=== PATIENT | female | born 1950 | race Caucasian/White ===

== ENCOUNTER 2019-07-31 03:35 | Emergency (ER) | payer MEDICARE ==
--- NOTE | 2019-07-31 03:43 | ED Physician Documentation ---
History of Present Illness - Stated complaint Stated Complaint: CP - History obtained from History obtained from: Patient (The patient is a 69-year-old female who presents to the emergency department with a chief complaint of chest pain that radiates to the back associated with nausea. She tried taking some antacids prior to arrival, However she continues to have chest pain.She denies any history of coronary artery disease or pulmonary embolism or DVT. She reports she is never had a previous stress test she does take mesalamine for inflammatory bowel disease.She denies tobacco alcohol or drug use. takes CBD. reports he typical heart rate has always been in the 50s.) Review of Systems Constitutional: reports: Reviewed and negative Eyes: reports: Reviewed and negative Ears: reports: Reviewed and negative Nose: reports: Reviewed and negative Throat: reports: Reviewed and negative Cardiac: reports: Chest pain / pressure Respiratory: reports: Reviewed and negative GI: reports: Nausea : reports: Reviewed and negative Skin: reports: Reviewed and negative Musculoskeletal: reports: Reviewed and negative Neurologic: reports: Reviewed and negative Psychiatric: reports: Reviewed and negative Endocrine: reports: Reviewed and negative Immunocompromised: reports: Reviewed and negative PD PAST MEDICAL HISTORY - Past Medical History Cardiovascular: None Respiratory: None Endocrine/Autoimmune: None GI: Crohn's disease LONE LEAD LINEMAN: None : None HEENT: Glaucoma Psych: Depression Musculoskeletal: Osteoarthritis Derm: None - Past Surgical History Past Surgical History: Yes General: Appendectomy Ortho: Spine surgery /LONE LEAD LINEMAN: Hysterectomy HEENT: Tonsil/Adenoidectomy - Present Medications Home Medications: Ambulatory Orders Medication Instructions Recorded Confirmed Hydrocodone/Acetaminophen 1 tab PO Q6HR PRN 02/10/14 07/31/19 [Hydrocodon-Acetaminophen 5-325] Mesalamine [Pentasa] 500 mg PO TID 02/10/14 07/31/19 Naproxen [Naprosyn] 2 tab PO BID 02/10/14 07/31/19 diazePAM [Valium] 5 mg PO TID PRN #15 tablet 02/10/14 07/31/19 Meclizine [Antivert] 25 mg PO Q6H PRN #20 tablet 02/11/14 07/31/19 Estradiol/Levonorgestrel [Climara 0.0025 mg TOP 5XD 01/24/15 07/31/19 Pro Patch] Gabapentin 300 mg PO BID 04/18/18 07/31/19 Cyanocobalamin [Vitamin B-12] 1.5 ml IM 07/31/19 Famotidine [Pepcid] 20 mg PO DAILY 07/31/19 07/31/19 - Allergies Allergies/Adverse Reactions: Allergies Allergy/AdvReac Type Severity Reaction Status Date / Time adhesive tape Allergy Rash Verified 07/31/19 03:45 oxycodone HCl * AdvReac Intermediate Hallucinati Verified 07/31/19 03:45 [From OxyContin] ons - Social History Does the pt smoke?: No Smoking Status: Never smoker Does the pt drink ETOH?: No Does the pt have substance abuse?: No - Immunizations Immunizations are current?: Yes - POLST Patient has POLST: No PD ED PE NORMAL - Vitals Vital signs reviewed: Yes - General General: Alert and oriented X 3, No acute distress, Well developed/nourished - HEENT HEENT: Atraumatic, PERRL, EOMI, Ears normal, Moist mucous membranes, Pharynx benign, Dentition benign - Neck Neck: Supple, no meningeal sign, No adenopathy, No JVD, No bruit - Cardiac Cardiac: RRR, No murmur, Strong equal pulses - Respiratory Respiratory: No respiratory distress, Clear bilaterally - Abdomen Abdomen: Normal bowel sounds, Soft, Non tender, Non distended, No organomegaly - Back Back: No CVA TTP, No spinal TTP - Derm Derm: Normal color, Warm and dry, No rash - Extremities Extremities: No deformity, No tenderness to palpate, Normal ROM s pain, No edema, No calf tenderness / cord - Neuro Neuro: Alert and oriented X 3, choir singer 2-12 intact, No motor deficit, No sensory deficit, Normal speech - Psych Psych: Normal mood, Normal affect Results - Vitals Vitals: Vital Signs - 24 hr 07/31/19 07/31/19 07/31/19 03:40 03:43 04:08 Temperature 36.5 C Heart Rate 53 L 56 L Respiratory 16 16 Rate Blood Pressure 190/73 H 166/69 H Blood Pressure 190/73 H [Left] Blood Pressure 166/77 H [Right] O2 Saturation 100 97 07/31/19 07/31/19 07/31/19 04:32 04:59 05:13 Temperature Heart Rate 46 L 47 L 59 L Respiratory 16 12 12 Rate Blood Pressure 168/69 H 154/59 H 161/68 H Blood Pressure [Left] Blood Pressure [Right] O2 Saturation 98 98 98 07/31/19 07/31/19 05:16 06:01 Temperature 36.6 C Heart Rate 55 L 48 L Respiratory 12 13 Rate Blood Pressure 133/67 H 137/68 H Blood Pressure [Left] Blood Pressure [Right] O2 Saturation 95 97 Oxygen O2 Source Room air - EKG (time done) 03:39 Rate: Other (no stemi) 05:32 Rate: Other (no stemi sinus bradycardia) - Labs Labs: Laboratory Tests 07/31/19 07/31/19 07/31/19 04:15 04:15 04:15 WBC 7.0 RBC 4.25 Hgb 13.2 Hct 39.6 MCV 93.2 MCH 31.1 H MCHC 33.3 RDW 11.8 L Plt Count 258 MPV 9.3 Neut # (Auto) 3.8 Lymph # (Auto) 2.3 Wharton # (Auto) 0.7 Eos # (Auto) 0.1 Baso # (Auto) 0.0 Absolute Nucleated RBC 0.00 Nucleated RBC % 0.0 PT 11.9 INR 1.0 APTT 31.8 Sodium 141 Potassium 3.9 Chloride 103 Carbon Dioxide 28 Anion Gap 10.0 BUN 22 H Creatinine 0.8 Estimated GFR (MDRD) 72 L Glucose 87 Calcium 9.8 Total Bilirubin 0.7 AST 20 ALT 18 Alkaline Phosphatase 58 Total Creatine Kinase 86 Troponin I High Sens B-Natriuretic Peptide Total Protein 6.7 Albumin 4.2 Globulin 2.5 Albumin/Globulin Ratio 1.7 Lipase 40 Urine Color Urine Clarity Urine pH Ur Specific Norris Urine Protein Urine Glucose (UA) Urine Ketones Urine Occult Blood Urine Nitrite Urine Bilirubin Urine Urobilinogen Ur Leukocyte Esterase Ur Microscopic Review Urine Culture Comments 07/31/19 07/31/19 07/31/19 04:15 04:15 04:25 WBC RBC Hgb Hct MCV MCH MCHC RDW Plt Count MPV Neut # (Auto) Lymph # (Auto) Wharton # (Auto) Eos # (Auto) Baso # (Auto) Absolute Nucleated RBC Nucleated RBC % PT INR APTT Sodium Potassium Chloride Carbon Dioxide Anion Gap BUN Creatinine Estimated GFR (MDRD) Glucose Calcium Total Bilirubin AST ALT Alkaline Phosphatase Total Creatine Kinase Troponin I High Sens 2.4 B-Natriuretic Peptide 54 Total Protein Albumin Globulin Albumin/Globulin Ratio Lipase Urine Color YELLOW Urine Clarity CLEAR Urine pH 7.0 Ur Specific Norris 1.015 Urine Protein NEGATIVE Urine Glucose (UA) NEGATIVE Urine Ketones NEGATIVE Urine Occult Blood NEGATIVE Urine Nitrite NEGATIVE Urine Bilirubin NEGATIVE Urine Urobilinogen 0.2 (NORMAL) Ur Leukocyte Esterase NEGATIVE Ur Microscopic Review NOT INDICATED Urine Culture Comments NOT INDICATED 07/31/19 05:52 WBC RBC Hgb Hct MCV MCH MCHC RDW Plt Count MPV Neut # (Auto) Lymph # (Auto) Wharton # (Auto) Eos # (Auto) Baso # (Auto) Absolute Nucleated RBC Nucleated RBC % PT INR APTT Sodium Potassium Chloride Carbon Dioxide Anion Gap BUN Creatinine Estimated GFR (MDRD) Glucose Calcium Total Bilirubin AST ALT Alkaline Phosphatase Total Creatine Kinase Troponin I High Sens < 2.3 L B-Natriuretic Peptide Total Protein Albumin Globulin Albumin/Globulin Ratio Lipase Urine Color Urine Clarity Urine pH Ur Specific Norris Urine Protein Urine Glucose (UA) Urine Ketones Urine Occult Blood Urine Nitrite Urine Bilirubin Urine Urobilinogen Ur Leukocyte Esterase Ur Microscopic Review Urine Culture Comments PD MEDICAL DECISION MAKING - ED course Complexity details: reviewed old records, reviewed results, re-evaluated patient (06:24 I had a lengthy discussion with this patient her heart score is 4. I did offer admission however we do not have the capability of doing a stress test today I did offer to transfer this patient to a higher level of care for a stress test however the patient would like to be discharged home she does have medical decision-making capability and capacity accepts all rest and include sudden . And/or disability. That being said her EKG x2 shows no STEMI does show sinus bradycardia no evidence of advanced heart block, troponins negative x2- chest x-ray and a negative CTA of the chest that shows no signs of pulmonary embolism or aneurysm or dissection. That being said a student still do not have an answer for the cause of her discomfort I would like her to have close follow-up with her primary care provider did provide her the name and phone number of a tax compliance representative to follow-up with as well.), considered differential (ACS, PE, DISSECTION, COSTOCHONDRITIS, PANCREATITIS, CHOLECYSTITIS, CHOLELITHIASIS, GERD, PEPTIC ULCER DISEASE, PTHX, TAMPONADE, ESOPOHAGEAL RUPTURE. ) Departure - Departure Disposition: 01 Home, Self Care Clinical Impression: Bradycardia Chest pain Qualifiers: Chest pain type: unspecified Qualified Code(s): R07.9 - Chest pain, unspecified Condition: Stable Instructions: ED Bradycardia Follow-Up: Trinidad Vegas MD [Physician No Access] - Tomorrow Comments: call your pcp tomorrow to schedule a follow up, if your chest pain returns or worsens return to the emergency department. call a tax compliance representative to schedule a follow up as well when available.
[2019-07-31] MEDS ORDERED: SODIUM CHLORIDE 0.9% 1,000 ML IV ONE (03:53)
[2019-07-31] MEDS ORDERED: ONDANSETRON 4 MG/2 ML VIAL IVP STA (03:53)
[2019-07-31] MEDS ORDERED: ASPIRIN 325 MG TABLET PO STA (03:53)
[2019-07-31] MEDS: NITROGLYCERIN SL 0.4 MG TABLET SL PRN ×2 (04:03→05:11)
[2019-07-31] MEDS ORDERED: IOVERSOL 320 100 ML VIAL IVP ONE ×2 (04:13→05:05)
[2019-07-31 04:24] LABS: BASOPHILS % (AUTO) 0.6 %; EOSINOPHILS # (AUTO) 0.1 10^3/uL (0.0-0.7); EOSINOPHILS % (AUTO) 1.7 %; HGB - HEMOGLOBIN 13.2 g/dL (12.0-16.0); LYMPHOCYTES # (AUTO) 2.3 10^3/uL (1.5-3.5); LYMPHOCYTES % (AUTO) 32.5 %; MEAN CORPUSCULAR HEMOGLOBIN 31.1 pg (27.0-31.0); MEAN CORPUSCULAR HGB CONC 33.3 g/dL (32.0-36.0); MEAN CORPUSCULAR VOLUME 93.2 fL (81.0-99.0); MEAN PLATELET VOLUME 9.3 fL (7.9-10.8); MONOCYTES # (AUTO) 0.7 10^3/uL (0.0-1.0); MONOCYTES % (AUTO) 9.9 %; NEUTROPHILS # (AUTO) 3.8 10^3/uL (1.5-6.6); PLT - PLATELET COUNT 258 10^3/uL (130-450); RED BLOOD COUNT 4.25 10^6/uL (4.20-5.40); RED CELL DISTRIBUTION WIDTH 11.8 % (12.0-15.0)
[2019-07-31 04:30] LABS: PT - PROTHROMBIN TIME 11.9 secs (9.9-12.6)
[2019-07-31 04:33] LABS: BILIRUBIN,URINE NEGATIVE (NEGATIVE); CLARITY,URINE CLEAR (CLEAR); GLUCOSE, URINE (UA) NEGATIVE (NEGATIVE); KETONES,URINE (UA) NEGATIVE (NEGATIVE); LEUKOCYTE ESTERASE, URINE NEGATIVE (NEGATIVE); NITRITE,URINE NEGATIVE (NEGATIVE); OCCULT BLOOD,URINE NEGATIVE (NEGATIVE); PROTEIN,URINE NEGATIVE (NEGATIVE); UROBILINOGEN,URINE 0.2 (NORMAL) E.U./dL (NORMAL)
--- NOTE | 2019-07-31 04:33 | XRAY Report ---
Reason: cp Procedure Date: 07/31/2019 Accession Number: [id number] / [id number] Procedure: XR - Chest 1 View X-Ray CPT Code: 57891 Final Report FULL RESULT: EXAM: CHEST RADIOGRAPHY EXAM DATE: 07/31/2019 04:14 AM. CLINICAL HISTORY: Awoke with mid left-sided chest pain. COMPARISON: None. TECHNIQUE: 1 view. FINDINGS: Lungs/Pleura: No focal opacities evident. No pleural effusion. No pneumothorax. Mediastinum: Within exam limitations, the cardiomediastinal contour is normal. Other: Moderate left shoulder degenerative change. IMPRESSION: No acute cardiopulmonary abnormality demonstrated. RADIA
[2019-07-31 04:37] LABS: ALBUMIN 4.2 g/dL (3.2-5.5); ALBUMIN/GLOBULIN RATIO 1.7 (1.0-2.2); BILIRUBIN,TOTAL 0.7 mg/dL (0.2-1.0); CALCIUM 9.8 mg/dL (8.5-10.3); CREATININE 0.8 mg/dL (0.4-1.0); PARTIAL THROMBOPLASTIN TIME 31.8 secs (24.9-33.3); TOTAL PROTEIN 6.7 g/dL (6.7-8.2)
--- NOTE | 2019-07-31 05:24 | CT Report ---
Reason: pe Procedure Date: 07/31/2019 Accession Number: [id number] / [id number] Procedure: CT - ANGIO CHEST W/WO CPT Code: Final Report FULL RESULT: EXAM: CT ANGIOGRAM CHEST EXAM DATE: 07/31/2019 05:03 AM. CLINICAL HISTORY: Awakened during the night with mid as well as left-sided chest pain. COMPARISON: None. TECHNIQUE: Routine helical imaging was performed through the chest in the pulmonary arterial phase. IV Contrast: 80 mL OPTIRAY 320. Reconstructions: Coronal 3-D MIP reconstructions. Sagittal and coronal. In accordance with CT protocol optimization, one or more of the following dose reduction techniques were utilized for this exam: automated exposure control, adjustment of mA and/or KV based on patient size, or use of iterative reconstructive technique. FINDINGS: Pulmonary Arteries: There is adequate opacification through the segmental arteries. No evidence for acute or chronic pulmonary emboli. Lungs and Pleura: Mild right apical fibronodular pleural and parenchymal scarring. No significant lung consolidation. No effusion or pneumothorax. Central Airways: Visualized central airways are without suspicious filling defects. Chest Wall: No significant abnormality. Thyroid: No significant abnormality. Mediastinum: No significant abnormality. Heart: Normal in size. No significant pericardial effusion. Aorta: Normal caliber. Upper Abdomen: There is a small low-density abnormality within the superior portion of segment 4A of the liver, measuring 3.6 cm. Additional smaller low-density lesion within superior portion of segment 2. These are difficult to characterize. Bones: No suspicious bony lesions evident. IMPRESSION: 1. No evidence of pulmonary embolism. 2. No significant pulmonary parenchymal abnormality. RADIA
[2019-07-31 06:29] VITALS: BP 137/75
== END 2019-07-31 06:29 | disposition home or self-care (01) ==
LOC: ED 03:35
DX: R07.9 Chest pain, unspecified (principal); R00.1 Bradycardia, unspecified
CPT/HCPCS: 36415; 71045; 71275; 80053; 81003; 82550; 83690; 83880; 84484; 85025; 85610; 85730; 93005; 96361; 96374; 99284; A9270; Q9967; 81001; 87086